=== PATIENT | male | born 1970 | race Caucasian/White ===

== ENCOUNTER 2016-11-19 18:24 | Emergency (ER) | payer SELFPAY ==
[~2016-11-19] VITALS: Ht 190.5 cm; Wt 125.2 kg
[~2016-11-19 18:24] MED LIST: FLEXERIL10 MG PO; MOTRIN800 MG PO; NKHM
[2016-11-19] MEDS ORDERED: VIBRAMYCIN100 MG PO (19:06)
== END 2016-11-19 19:08 | disposition home or self-care (01) ==
LOC: ED 18:24
DX: R21 Rash and other nonspecific skin eruption (principal)

== ENCOUNTER 2023-02-10 18:37 | Emergency (ER) | payer OTHER ==
[~2023-02-10] VITALS: Ht 190.5 cm; Wt 122.5 kg
[~2023-02-10 18:37] MED LIST changes: +VIBRAMYCIN100 MG PO
[2023-02-10] MEDS ORDERED: NAPROXEN250 MG PO (23:40)
[2023-02-10] MEDS ORDERED: METHOCARBAMOL750 M1 PO (23:40)
== END 2023-02-11 00:39 | disposition home or self-care (01) ==
LOC: ED 18:37
DX: M25.512 Pain in left shoulder (principal); M25.522 Pain in left elbow; M54.2 Cervicalgia; M54.6 Pain in thoracic spine; M54.50 Low back pain, unspecified; F17.200 Nicotine dependence, unspecified, uncomplicated; Z79.2 Long term (current) use of antibiotics; V89.2XXA Person injured in unspecified motor-vehicle accident, traffic, initial encounter; Y93.I9 Activity, other involving external motion; Y92.488 Other paved roadways as the place of occurrence of the external cause; Y99.8 Other external cause status